=== PATIENT | male | born 2000 | race Caucasian/White ===

== ENCOUNTER 2019-12-30 08:46 | Emergency (ER) | payer OTHER ==
[~2019-12-30] VITALS: Ht 180.3 cm; Wt 99.8 kg
[2019-12-30] MEDS ORDERED: Augmentin 875-1 EACH PO (11:56)
[2019-12-30] MEDS ORDERED: Norco 5-325 Ta1 EACH PO (11:56)
== END 2019-12-30 12:04 | disposition home or self-care (01) ==
LOC: ER 08:46
DX: S61.141A Puncture wound with foreign body of right thumb with damage to nail, initial encounter (principal); Z23 Encounter for immunization; W29.4XXA Contact with nail gun, initial encounter
CPT/HCPCS: 36415; 64450; 73130; 90471; 90714; 96365-59; 96375-59; 99283-25; J0690; J1170; L3917